=== PATIENT | male | born 1970 | race Two or more races ===

== ENCOUNTER 2020-05-18 07:11 | Inpatient (IN) | payer MEDICAID, OTHER ==
[~2020-05-18] VITALS: Ht 172.7 cm; Wt 126.1 kg
[2020-05-18] MEDS ORDERED: MORPHINE SULFATE 4 MG/ML CPJ (NOT FOR IM USE) IV STA (07:52)
[2020-05-18] MEDS ORDERED: ONDANSETRON HCL 4MG/2ML INJ IV STA (07:52)
[2020-05-18] MEDS ORDERED: NITROGLYCERIN OINT 1GM/INCH UDPKT TD ONE (08:00)
[2020-05-18] MEDS ORDERED: ASPIRIN 81MG TABLET PO ONE (08:00)
[2020-05-18 08:16] LABS: BASOPHILS % 0.5 % (0.0-2.0); EOSINOPHILS % 2.1 % (0.0-5.0); HEMOGLOBIN. 13.9 g/dL (14.0-18.0); LYMPHOCYTES % 23.7 % (20.0-50.0); MEAN CORPUSCULAR VOLUME 89.3 fL (80.0-94.0); MEAN PLATELET VOLUME 8.9 fl (7.4-10.4); MONOCYTES % 6.1 % (2.0-8.0); NEUTROPHILS % 67.6 % (40.0-76.0); PLATELET 220 x1000/uL (130-400); RED BLOOD CELL COUNT 4.48 mill/uL (4.7-6.1); RED CELL DISTRIBUTION WIDTH 12.8 % (11.6-14.6)
[2020-05-18 08:23] LABS: CHLORIDE 105 mEq/L (98-107)
[2020-05-18 08:28] LABS: ETHANOL BLOOD < 10 mg/dL
[2020-05-18] MEDS: AMLODIPINE 10MG TABLET PO SCH (09:40)
[2020-05-18] MEDS: GABAPENTIN 100MG CAPSULE PO SCH (09:40)
[2020-05-18] MEDS ORDERED: LIDOCAINE HCL 1% 20ML VIAL (Pyxis) INJ ONE (09:44)
[2020-05-18] MEDS ORDERED: FENTANYL CITRATE/PF 50MCG/ML 2ML VIAL ONE (09:44)
[2020-05-18] MEDS ORDERED: MIDAZOLAM HCL 5 MG/5 ML VIAL ONE (09:44)
[2020-05-18] MEDS ORDERED: IODIXANOL 320MG/ML 100 ML BOTTLE IV ONE (09:45)
[2020-05-18] MEDS ORDERED: HEPARIN SODIUM 1,000 UNIT/1ML VIAL IV ONE (10:00)
[2020-05-18] MEDS ORDERED: NICARDIPINE 100MCG/ML 10ML VIAL (CATH LAB) IV ONE (10:00)
[2020-05-18] MEDS ORDERED: NITROGLYCERIN 50MCG/ML 10ML VIAL (CATH LAB) IV ONE (10:00)
[2020-05-18] MEDS ORDERED: ASPIRIN/SOD BICARB/CITRIC ACID 324MG TAB EFF ONE (10:18)
[2020-05-18] MEDS ORDERED: ATROPINE SULFATE 1MG/10ML SYR IV PRN (11:15)
[2020-05-18] MEDS ORDERED: ACETAMINOPHEN 325MG TABLET PO PRN ×2 (11:15→12:00)
[2020-05-18] MEDS ORDERED: MORPHINE SULFATE 2 MG/ML CPJ (NOT FOR IM USE) IV PRN (11:15)
[2020-05-18] MEDS ORDERED: ONDANSETRON HCL 4MG/2ML INJ IV PRN ×2 (11:15→12:00)
[2020-05-18] MEDS ORDERED: SODIUM CHLORIDE 0.45% 1,000 ML IV ONE (11:15)
[2020-05-18] MEDS ORDERED: CLONIDINE 0.1MG TABLET PO PRN (12:00)
[2020-05-18] MEDS ORDERED: IPRATROPIUM/ALBUTEROL 0.5-3(2.5)MG/3ML NEB HHN PRN (12:00)
[2020-05-18] MEDS ORDERED: DIPHENHYDRAMINE 50MG/ML VIAL IV PRN (12:00)
[2020-05-18] MEDS ORDERED: DEXTROSE 50% WATER 50ML SYRINGE IV PRN (14:30)
[2020-05-18 16:35] VITALS: BP 136/79
[2020-05-18 16:42] VITALS: BP 127/76
[2020-05-18 17:02] VITALS: BP 146/86
[2020-05-18] MEDS: BLOOD SUGAR DIAGNOSTIC STRIP TEST SCH ×2 (17:11→20:45)
[2020-05-18] MEDS: INSULIN LISPRO 100 UNITS/ML SUBCUT SCH ×2 (17:27→20:45)
[2020-05-18 17:30] VITALS: BP 119/76
[2020-05-18 20:00] VITALS: BP 137/70
[2020-05-18 22:00] VITALS: BP 145/78
[2020-05-19] VITALS (9 sets, daily range): BP systolic 128–158; BP diastolic 70–89
[2020-05-19 06:06] LABS: BASOPHILS % 0.4 % (0.0-2.0); EOSINOPHILS % 2.3 % (0.0-5.0); HEMATOCRIT. 40.8 % (42.0-52.0); HEMOGLOBIN. 14.5 g/dL (14.0-18.0); LYMPHOCYTES % 17.7 % (20.0-50.0); MEAN CORPUSCULAR HEMOGLOBIN 31.1 pg (28.0-32.0); MEAN CORPUSCULAR VOLUME 87.6 fL (80.0-94.0); MEAN PLATELET VOLUME 9.2 fl (7.4-10.4); NEUTROPHILS % 73.6 % (40.0-76.0); PLATELET 212 x1000/uL (130-400); RED BLOOD CELL COUNT 4.66 mill/uL (4.7-6.1); RED CELL DISTRIBUTION WIDTH 12.3 % (11.6-14.6)
[2020-05-19 06:16] LABS: CHLORIDE 102 mEq/L (98-107)
[2020-05-19] MEDS: BLOOD SUGAR DIAGNOSTIC STRIP TEST SCH ×2 (06:17→11:50)
[2020-05-19 06:25] LABS: HDL CHOLESTEROL 43 mg/dL (40-59)
[2020-05-19 06:27] LABS: LDL CHOLESTEROL 132 mg/dL (5-100)
[2020-05-19 06:28] LABS: T4 FREE 1.07 ng/dL (0.76-1.46)
[2020-05-19 06:32] LABS: TOTAL IRON BINDING CAPACITY 300 ug/dL (250-450)
[2020-05-19 06:45] LABS: VITAMIN B12 SERUM 716 pg/mL (211-911)
[2020-05-19] MEDS: AMLODIPINE 10MG TABLET PO SCH (08:39)
[2020-05-19] MEDS: GABAPENTIN 100MG CAPSULE PO SCH (08:39)
[2020-05-19] MEDS: INSULIN LISPRO 100 UNITS/ML SUBCUT SCH ×2 (08:40→13:05)
[2020-05-19] MEDS ORDERED: ASPIRIN 81MG TABLET PO SCH (09:00)
[2020-05-19] MEDS ORDERED: LOSARTAN POTASSIUM 25 MG TABLET PO SCH (10:00)
[2020-05-19] MEDS ORDERED: LOSA25TA3 PO (11:45)
[2020-05-19] MEDS ORDERED: LIP40 PO (11:45)
[2020-05-19] MEDS ORDERED: INSU100I28 SQ (11:45)
[2020-05-19] MEDS ORDERED: ASPI-1160 PO (11:45)
[2020-05-19] MEDS ORDERED: METF-416 MT (11:45)
[2020-05-19] MEDS ORDERED: AMLO10TA80 PO (11:45)
[2020-05-19] MEDS ORDERED: ATORVASTATIN CALCIUM 40MG TABLET PO SCH (21:00)
== END 2020-05-19 14:00 | disposition home or self-care (01) | DRG 192 ==
LOC: ER 07:11 → EDBEDREQTM 09:21 → OR 10:17 → 3WST 10:18 → EDBEDREQTM 10:19 → EDBEDREQ 10:19 → ENRESERV 13:36
PROVIDERS: ADMIT Internal Medicine; ATTEND Internal Medicine
PROC: 4A023N7 Measurement of Cardiac Sampling and Pressure, Left Heart, Percutaneous Approach (ICD-10-PCS; principal; 2020-05-18)
PROC: B215YZZ Fluoroscopy of Left Heart using Other Contrast (ICD-10-PCS; 2020-05-18)
PROC: B211YZZ Fluoroscopy of Multiple Coronary Arteries using Other Contrast (ICD-10-PCS; 2020-05-18)
DX: M94.0 Chondrocostal junction syndrome [Tietze] (principal); Z68.41 Body mass index [BMI] 40.0-44.9, adult; E66.9 Obesity, unspecified; I25.10 Atherosclerotic heart disease of native coronary artery without angina pectoris; R07.9 Chest pain, unspecified; E11.9 Type 2 diabetes mellitus without complications; I10 Essential (primary) hypertension; E78.5 Hyperlipidemia, unspecified; I44.4 Left anterior fascicular block; Z20.828 Contact with and (suspected) exposure to other viral communicable diseases; R94.39 Abnormal result of other cardiovascular function study; I25.2 Old myocardial infarction; Z95.5 Presence of coronary angioplasty implant and graft; Z79.82 Long term (current) use of aspirin; Z79.899 Other long term (current) drug therapy; Z79.84 Long term (current) use of oral hypoglycemic drugs; Z82.49 Family history of ischemic heart disease and other diseases of the circulatory system
CPT/HCPCS: 36415; 71045; 80048; 80053; 80061; 80076; 80320; 82607; 82962; 83036; 83540; 83550; 83880; 84439; 84443; 84481; 84484; 85025; 85044; 87426; 93005; 93306; 93458; 93970; 99285; C1769; C1887; C1893; J1644; J1815; J2250; J3010; J3490; Q9967; G0480